=== PATIENT | female | born 1950 | race American Indian/Alaskan Native ===

== ENCOUNTER 2017-05-19 08:40 | Day surgery (SDC) | payer MEDICARE ==
[2017-05-19] MEDS ORDERED: WATER FOR IRRIG STERILE IR ONE (10:44)
[2017-05-19] MEDS ORDERED: VERSED ONE (10:45)
[2017-05-19] MEDS ORDERED: DIPRIVAN 10 MG/ML IV ONE ×2 (10:46→11:16)
[2017-05-19] MEDS ORDERED: NACL 0.9% 1000 ML 1,000 ML IV SCH (11:00)
--- NOTE | 2017-05-19 11:36 | Post Anesthesia Evaluation ---
- Post Anesthesia Evaluation Patient Participated: Yes Airway Patent: Yes Stable Respiratory Function: Yes Nausea/Vomiting: No Temp > 96.8F: Yes Pain Manageable: Yes Adequeate Hydration: No
--- NOTE | 2017-05-19 11:38 | Short Stay Summary ---
Short Stay Documentation Date of service: 05/19/17 Narrative H&P: The patient presents for her first screening colonoscopy for FH of colon polyps. - History Past Medical History: CAD, diabetes, hypertension, other (Defibrillator placement for cardiac arrythmia) Past Surgical History: appendectomy, hysterectomy, Other (Defibrillator/ pacemaker) Social history: smoking, no alcohol abuse, no prescription drug abuse - Allergies and Medications Current Medications: Allergies iodine Allergy (Verified 10/12/13 08:33) Dizziness shellfish derived Allergy (Verified 10/12/13 08:33) Dizziness Home Medications Medication Instructions Recorded Confirmed Last Taken Type RX: Nitroglycerin [Nitrostat] 0.4 mg SUBLINGUAL DAILY PRN 10/12/13 05/18/17 History RX: Ranolazine [Ranexa] 1,000 mg PO DAILY 10/12/13 05/19/17 05/18/17 History RX: Simvastatin 20 mg PO QHS 10/12/13 05/19/17 05/18/17 History RX: Aspirin [Aspirin BABY CHEW TAB] 81 mg PO QDAY 09/25/14 05/19/17 05/11/17 History HYDROcodone/APAP 5-325 [[place] 1 each PO Q6HR PRN #12 tablet 09/27/14 Unknown Rx 5-325 mg TAB] RX: Clopidogrel [Plavix] 75 mg PO DAILY #30 tablet 09/27/14 05/19/17 05/11/17 Rx RX: Lisinopril [Zestril TAB] 20 mg PO QDAY #30 tablet 09/27/14 05/19/17 Rx RX: Metoprolol [Lopressor TAB] 25 mg PO BID #60 tablet 09/27/14 05/18/17 Unknown Rx AtorvaSTATin 05/18/17 Unknown History Carvedilol 6.25 mg PO DAILY 05/19/17 05/19/17 05/18/17 History Furosemide 40 mg PO DAILY 05/19/17 05/19/17 05/18/17 History Spironolactone 25 mg PO DAILY 05/19/17 05/19/17 05/17/17 History Tradjenta 5 mg PO DAILY 05/19/17 05/19/17 05/17/17 History buPROPion 150 mg PO DAILY 05/19/17 05/19/17 05/17/17 History Active Medications Sodium Chloride (Nacl 0.9% 1000 Ml) 1,000 mls @ 50 mls/hr IV DIRECT [place]IGH Last Admin: 05/19/17 10:31 Dose: 50 mls/hr - Physical exam General appearance: no acute distress, well-nourished Integumentary: no rash, no growths, no abnormal pigmentation HEENT: Atraumatic, PERRLA, EOMI, Mucous membr. moist/pink Lungs: Clear to auscultation, Normal air movement Breasts: deferred Heart: Regular rate, Normal S1, Normal S2, No murmurs Gastrointestinal: hypoactive bowel sounds, no tenderness, no distended, no masses, no organomegaly Female Genitourinary: deferred Rectal Exam: normal exam-external/orifice, normal rectal tone Extremities: no ischemia, pulses intact, pulses symmetrical, No edema, normal temperature, normal color, Full ROM Neurological: Normal gait, Normal speech, Strength at 5/5 X4 ext, Normal tone, Sensation intact, Cranial nerves 3-12 NL - Brief post op/procedure progress note Date of procedure: 05/19/17 Findings: see intake form Estimated blood loss: none Pathology: none Condition: stable - Disposition Condition at discharge: Good - Discharge Diagnoses (1) Screening for colon cancer Status: Acute Short Stay Discharge Plan Activity: other (Retart plavix today, no driving for 24 hours. Outpatient Barium Enema for completion of colon imaging.) Weight Bearing Status: Full Weight Bearing Diet: regular Follow up with: KEN WATTS MD [Primary Care Provider] - 7 Days
--- NOTE | 2017-05-19 11:43 | Operative Report ---
Operative Report Operative Report: Date of procedure: 05/19/2017 Preprocedure diagnosis:: Cancer screening for family history of colon polyps Post procedure diagnoses: Left colon diverticulosis with fixed angulations precluding complete study Procedure: Flexible sigmoidoscopy Endoscopist: Uzair Mcmahon M.D. Estimated blood loss: 0 Medications: Propofol per anesthesia After careful discussion of the nature and purpose of the procedure, risks, benefits, and alternatives consent was obtained. The patient was placed in the left lateral decubitus position and medicated per anesthesia-see separate records for details. A rectal exam was performed. Sphincter tone was normal and no masses were palpable. The tip of the [employer] LQ 570 video scope was passed transanally and advanced under continuous direct vision to approximately 50 cm. The colon preparation was good. There were multiple diverticula and fixed angulations precluding passage of the pediatric colonoscope successfully. The scope was withdrawn followed by insertion of the Fujinon E every 5 70 up her scope transanally and advanced under continuous direct observation to approximately the same level. Despite insufflation of air and fluid it was felt unsafe to pass the scope further in this setting.. The rectum was normal in appearance. The procedure was well-tolerated overall. Conclusions: Left colon diverticulosis with fixed angulations precluding proximal advancement to the cecum.. Plan: Air-contrast barium enema to image the proximal colon. The patient will call the office for this to be arranged. Electronically signing: Uzair Mcmahon M.D.
[2017-05-19 11:57] VITALS: BP 168/75
--- NOTE | 2017-05-19 12:41 | Anesthesia Consultation ---
Anesthesia Consult and Med Hx Date of service: 05/19/17 - Airway Anesthetic Teeth Evaluation: Good ROM Head & Neck: Adequate Mental/Hyoid Distance: Adequate Mallampati Class: Class II Intubation Access Assessment: Good - Pulmonary Exam CTA: Yes - Cardiac Exam Cardiac Exam: RRR - Pre-Operative Health Status ASA Pre-Surgery Classification: ASA3 Proposed Anesthetic Plan: General - Pulmonary Hx Smoking: Yes (1 Q 3 DAYS) - Cardiovascular System Hx Hypertension: Yes Hx Coronary Artery Disease: Yes Hx Heart Attack/AMI: Yes Hx Angina: Yes Hx Percutaneous Transluminal Coronary Angioplasty (PTCA): Yes Hx Pacemaker: Yes (DEFIBRILLATOR) - Central Nervous System CVA: Yes Hx Psychiatric Problems: No - Other Systems Hx Cancer: No
--- NOTE | 2017-05-19 12:41 | Anesthesia Day of Surgery ---
Anesthesia Day of Surgery - Day of Surgery Patient Examined: Yes Patient H&P Reviewed: Yes Patient is NPO: Yes
== END 2017-05-19 08:41 | disposition home or self-care (01) ==
LOC: GIO 08:40
PROVIDERS: ATTEND Internal Medicine Gastroenterology
DX: Z12.11 Encounter for screening for malignant neoplasm of colon (principal); K57.30 Diverticulosis of large intestine without perforation or abscess without bleeding; I25.10 Atherosclerotic heart disease of native coronary artery without angina pectoris; I10 Essential (primary) hypertension; I25.2 Old myocardial infarction; Z95.810 Presence of automatic (implantable) cardiac defibrillator; Z91.013 Allergy to seafood; Z91.048 Other nonmedicinal substance allergy status; Z90.710 Acquired absence of both cervix and uterus; Z79.899 Other long term (current) drug therapy; Z79.82 Long term (current) use of aspirin; Z98.61 Coronary angioplasty status; Z86.73 Personal history of transient ischemic attack (TIA), and cerebral infarction without residual deficits; Z83.71 Family history of colonic polyps
CPT/HCPCS: 82962; G0105; J2250; J2704; J7030